=== PATIENT | male | born 1945 | race Caucasian/White ===

== ENCOUNTER 2019-02-09 04:01 | Emergency (ER) | payer BC, MEDICARE ==
[2019-02-09] MEDS: EPINEPHrine 1:10,000 1 MG/10 ML Syringe IVPUSH PRN ×8 (04:05→04:58)
[2019-02-09] MEDS: Sodium Chloride 0.9% 1,000 ML IV SCH ×3 (04:07→06:15)
[2019-02-09] MEDS ORDERED: Amiodarone 150 MG/3 ML SDV IVPUSH ONE (04:15)
[2019-02-09] MEDS ORDERED: Ketamine 200 MG/20 ML MDV IVPUSH ONE (04:30)
[2019-02-09] MEDS ORDERED: Calcium Chloride 10% 1 GM/10 ML Syringe IVPUSH ONE (05:00)
[2019-02-09] MEDS ORDERED: Sodium Bicarbonate 8.4% 50 MEQ/50 ML Syringe IVPUSH ONE (05:00)
[2019-02-09] MEDS ORDERED: EPINEPHrine 4 MG in Dextrose 5% in Water 250 ML IV SCH ×4 (05:15→23:15)
[2019-02-09] MEDS ORDERED: Norepinephrine 4 MG in Dextrose 5% in Water 246 ML IV SCH ×2 (06:00)
--- NOTE | 2019-02-09 08:46 | CR ---
DATE OF SERVICE: 02/09/2019 CLINICAL DATA: Post CPR. AP PORTABLE CHEST: Comparison is made to a prior exam dated 11/20/2014. There is an endotracheal tube in place with its distal tip 2 cm above the lyubov. The heart size is normal. The aorta is calcified and ectatic. The lungs appear clear. No pneumothorax. No pleural effusions. No other significant findings. [id number] [facility]
--- NOTE | 2019-02-09 09:42 | ER ---
HPI: A 73-year-old male who came in by ambulance with complaints of abdominal pain. The patient was awake and talking with EMS crew until they arrived at the hospital and he was wheeled into the Trauma Room. The patient then became unresponsive and pulseless. When I got to the emergency room, the patient was unresponsive and had no palpable pulse. CPR was initiated, and the patient was intubated within a few minutes. Epinephrine was given repeatedly. It would bring back a temporary rhythm, only to fade away after 2 or 3 minutes. The rhythm was basically PEA. There was never a shockable rhythm. IV fluids were started as soon as an IV was placed, and at one point after getting a temporary rhythm, amiodarone 300 mg was given IV as well. After 6 doses of epinephrine and 1 dose of amiodarone, I consulted with Dr. Cong Gonzalez, and at this point the patient was given bicarb and calcium chloride. This did produce a sustained bradycardic rhythm with a pulse rate in the 50s. The patient's blood pressure was low and this initially led to the patient being started on Levophed and he was started on an epi drip. The patient's pulse rate was maintained after this time. I did consult with the ER doctor and [place] about transferring the patient. Initially, they did not feel he was stable enough for transfer, but after a sustained rhythm for about 20 minutes we discussed the patient's case once again, and Dr. Alcala agreed to take the patient. Arrangements for transfer were made at that time. OBJECTIVE: Secondary exam : EYES: Pupils were fixed and dilated. Patient has now maintained a pulse in the 50's. SKIN: Cool and there is some mottling of both legs. ABDOMEN: Has a large mass centrally located. The abdomen is soft around the mass, but the mass is large. SKIN: Otherwise cool. LAB AND X-RAY: Chest x-ray shows proper ET tube placement. I do not see any other abnormalities. Labs include a CBC which is largely normal. Basic metabolic panel shows a sodium level 140, potassium 3.5, carbon dioxide 8.1, and blood glucose 188. Troponin is normal. PT/INR also unremarkable. DIAGNOSIS: Cardiac arrest. TREATMENT PLAN: The patient was transferred to [facility] by [facility]. He maintained a pulse in the 50s. Once we were able to achieve a consistent pulse, the patient's pupils did change briefly. They were no longer dilated but remain fixed bilaterally. The patient did start taking a respiration spontaneously about every 15 seconds, and he started to twitch once in a while. The pa catheter was placed. He was also given ketamine 40 mg IV for sedation approximately 1 hour before leaving our facility. He was given over 2 liters of IV normal saline while in the ER. Condition at time of leaving our facility - critical. SAI/MODShanta /[id number] MTDCastillo
[2019-02-09 22:27] VITALS: BP 101/48; PULSE 101
== END 2019-02-09 06:55 ==
LOC: LB.ED 04:01
DX: I46.9 Cardiac arrest, cause unspecified (principal)
CPT/HCPCS: 31500; 36415; 36680; 51702; 71045; 80048; 82962; 84484; 85025; 85610; 92950; 93005; 96360; 96361; 99285; A0425; A0429; J0171; J0282; J7030; J7060